=== PATIENT | female | born 1980 | race Caucasian/White ===

== ENCOUNTER 2016-02-28 18:43 | Emergency (ER) | payer OTHER ==
[~2016-02-28] VITALS: Ht 162.6 cm; Wt 112.0 kg
[~2016-02-28 18:43] MED LIST: CEPH500C PO; HYDR-906 PO; IBUP-1542 PO; ONDA4TAB14 PO; TAMS-14 PO
[2016-02-28 18:47] VITALS: Ht 162.6 cm; Wt 112.0 kg
[2016-02-28 20:17] LABS: ADD UMIC YES; URINE BILIRUBIN (Dip) NEGATIVE (NEGATIVE); URINE BLOOD (Dip) 2+ (NEGATIVE); URINE COLOR LT. YELLOW (YELLOW); URINE GLUCOSE (Dip) NEGATIVE (NEGATIVE); URINE KETONES (Dip) 15 (NEGATIVE); URINE LEUKOCYTE ESTERASE (Dip) NEGATIVE (NEGATIVE); URINE NITRITE (Dip) NEGATIVE (NEGATIVE); URINE TOTAL PROTEIN (Dip) NEGATIVE (NEGATIVE); URINE UROBILINOGEN (Dip) 0.2 E.U./dL (0.1-1.0)
[2016-02-28 20:19] LABS: BASOPHIL # 0.3 10^3/ul (0.0-0.1); BASOPHILS % 1.9 % (0.0-2.0); EOSINOPHILS # 0.1 10^3/ul (0.0-0.5); EOSINOPHILS % 0.7 % (0.0-7.0); HEMATOCRIT 37.9 % (37.0-47.0); HEMOGLOBIN 12.8 g/dl (12.0-16.0); LYMPHOCYTES # 2.1 10^3/ul (0.8-2.9); LYMPHOCYTES % 12.7 % (15.0-51.0); MEAN CORPUSCULAR HEMOGLOBIN 27.9 pg (29.0-33.0); MEAN CORPUSCULAR HGB CONC 33.9 g/dl (32.0-37.0); MEAN CORPUSCULAR VOLUME 82.5 fl (82.0-101.0); MEAN PLATELET VOLUME 8.2 fl (7.4-10.4); MONOCYTE # 0.7 10^3/ul (0.3-0.9); MONOCYTES % 4.6 % (0.0-11.0); NEUTROPHIL # 12.9 10^3/ul (1.6-7.5); NEUTROPHILS % 80.1 % (39.0-77.0); PLATELET COUNT 314 10^3/UL (140-440); RED CELL DISTRIBUTION WIDTH 13.6 % (11.5-14.5); UNCORRECTED WBC 16.1 10^3/ul (4.8-10.8); WHITE BLOOD COUNT 16.1 10^3/ul (4.8-10.8)
[2016-02-28 20:25] LABS: CONDITION 1
[2016-02-28 20:26] LABS: ALBUMIN 4.3 g/dl (3.3-4.9)
[2016-02-28 20:27] LABS: POTASSIUM 4.2 mmol/L (3.5-5.1)
[2016-02-28 20:29] LABS: BILIRUBIN,INDIRECT 0.3 mg/dl (0-1.1); BILIRUBIN,TOTAL 0.3 mg/dl (0.2-1.3); CREATININE 0.78 mg/dl (0.44-1.00)
[2016-02-28 20:30] LABS: CALCIUM 9.3 mg/dl (8.4-10.2); TOTAL PROTEIN 8.6 g/dl (6.1-8.1)
[2016-02-28] MEDS ORDERED: ONDANSETRON 4 MG INJ IV STA (20:31)
[2016-02-28] MEDS ORDERED: KETOROLAC 30 MG INJ IV STA (20:31)
--- NOTE | 2016-02-28 20:31 | ERD ---
ER Documentation Chief Complaint Date/Time DATE: 02/28/16 TIME: 20:30 Chief Complaint right flank pain x 2 days HPI 35-year-old female with a history of kidney stones comes in with exacerbated right flank pain for 2 days as well as fever and cough. This patient was seen in December here and was told that she had kidney stones and has an appointment to see a urologist but not until April of this year. Pain is on the right flank , nonradiating, achy, severe associated with nausea. She states that she has noted a slight fever at home associated with cough over the last 4 days. She denies chest pain or shortness of breath. Patient previously was prescribed [place] for pain however she ran out in the same month of her last visit in December last year. ROS All systems reviewed and are negative except as per history of present illness. Medications Home Meds Active Scripts Hydrocodone/Acetaminophen ([place] 5-325 Tablet) 1 Each Tablet, 1 TAB PO Q6H Y for PAIN, #20 TAB Prov:MO ARROYO PA-C 02/28/16 Ibuprofen* (Motrin*) 600 Mg Tab, 600 MG PO Q6, #30 TAB Prov:MO ARROYO PA-C 02/28/16 Tamsulosin Hcl* (Flomax*) 0.4 Mg Cap.er.24h, 0.4 MG PO DAILY, #30 CAP Prov:MO ARRYOO PA-C 02/28/16 Tamsulosin Hcl* (Flomax*) 0.4 Mg Cap.er.24h, 0.4 MG PO BID, #30 CAP Prov:MO ARROYO PA-C 01/19/16 Ibuprofen* (Motrin*) 600 Mg Tab, 600 MG PO Q6, #30 TAB Prov:MO ARROYO PA-C 01/19/16 Cephalexin* (Cephalexin*) 500 Mg Capsule, 500 MG PO Q6, #28 CAP Prov:NED PRESSLEY PA-C 12/03/15 Ondansetron (Ondansetron Odt) 4 Mg Tab.rapdis, 4 MG PO Q6H Y for NAUSEA AND/OR VOMITING, #10 TAB Prov:NED PRESSLEY PA-C 12/03/15 Hydrocodone/Acetaminophen ([place] 5-325 Tablet) 1 Each Tablet, 1-2 EACH PO Q6, # 30 TAB Prov:WENDIENED Tafoya PA-C 12/03/15 Reported Medications [None] No Conflict Check 05/12/09 Allergies Allergies: Coded Allergies: No Known Drug Allergies (Verified Allergy, Mild, 12/03/15) PMhx/Soc Medical and Surgical Hx: pt denies Surgical Hx History of Surgery: No Anesthesia Reaction: No Hx Neurological Disorder: No Hx Respiratory Disorders: No Hx Cardiac Disorders: No Hx Psychiatric Problems: No Hx Miscellaneous Medical Probl: No Hx Alcohol Use: No Hx Substance Use: No Hx Tobacco Use: No Smoking Status: Never smoker Physical Exam Vitals Vital Signs Date Time Temp Pulse Resp B/P Pulse Ox O2 Delivery O2 Flow Rate FiO2 02/28/16 18:47 99.8 74 20 170/89 100 Physical Exam General: Well-developed, well-nourished. The patient appears in no acute distress. HEENT: Head is normocephalic, atraumatic. No scleral icterus. Pupils are equal , round, and reactive. Oral mucous membranes are moist. No pharyngeal erythema. Neck: Supple. Nontender. Lungs: Clear to auscultation. Normal air movement. Heart: Regular rate and rhythm. S1 and S2 are normal. No murmurs, gallops, or rubs. Abdomen: Soft, nontender, nondistended. Bowel sounds are normoactive. Extremities: No clubbing or cyanosis. Normal pulses. Moving extremities x 4. No weakness. Neurologic: Alert and oriented 3. No focal deficits. Skin: Normal turgor. No rash or lesions. Result Diagram: 02/28/16200402/28/162004 Results 24 hrs Laboratory Tests Test 02/28/16 20:05 Alanine Aminotransferase (ALT/SGPT) 32IU/L Albumin 4.3g/dl Albumin/Globulin Ratio 1.00 Alkaline Phosphatase 100IU/L Anion Gap 19 Aspartate Amino Transf (AST/SGOT) 34IU/L Basophils # 0.310^3/ul Basophils % 1.9% Blood Morphology Comment Blood Urea Nitrogen 13mg/dl Calcium Level 9.3mg/dl Carbon Dioxide Level 25mmol/L Chloride Level 101mmol/L Creatinine 0.78mg/dl Direct Bilirubin 0.00mg/dl Eosinophils # 0.110^3/ul Eosinophils % 0.7% Globulin 4.30g/dl Glucose Level 98mg/dl Hematocrit 37.9% Hemoglobin 12.8g/dl Indirect Bilirubin 0.3mg/dl Lipase 25U/L Lymphocytes # 2.110^3/ul Lymphocytes % 12.7% Mean Corpuscular Hemoglobin 27.9pg Mean Corpuscular Hemoglobin Concent 33.9g/dl Mean Corpuscular Volume 82.5fl Mean Platelet Volume 8.2fl Monocytes # 0.710^3/ul Monocytes % 4.6% Neutrophils # 12.910^3/ul Neutrophils % 80.1% Nucleated Red Blood Cells # 0.010^3/ul Nucleated Red Blood Cells % 0.0/100WBC Platelet Count 41114^3/UL Potassium Level 4.2mmol/L Red Blood Count 4.6010^6/ul Red Cell Distribution Width 13.6% Sodium Level 141mmol/L Total Bilirubin 0.3mg/dl Total Protein 8.6g/dl Urine Bacteria FEW Urine Bilirubin NEGATIVE Urine Clarity CLEAR Urine Color LT. YELLOW Urine Glucose NEGATIVE% Urine Hemoglobin 2+ Urine Ketones 15 Urine Leukocyte Esterase NEGATIVE Urine Microscopic RBC 5-10/HPF Urine Microscopic WBC 0-2/HPF Urine Nitrite NEGATIVE Urine Specific [place] 1.020 Urine Squamous Epithelial Cells MODERATE Urine Total Protein NEGATIVE Urine Urobilinogen 0.2 E.U./dL Urine pH 6.5 White Blood Count 16.110^3/ul Current Medications Medications (Trade) Dose Ordered Sig/[place] Route PRN Reason Start Time Stop Time Status Last Admin Dose Admin Ketorolac Tromethamine (Toradol) 30 mg ONCE STAT IV 02/28/16 20:31 02/28/16 20:32 DC 02/28/16 20:50 Ondansetron HCl (Zofran Inj) 4 mg ONCE STAT IV 02/28/16 20:31 02/28/16 20:32 DC 02/28/16 20:50 Morphine Sulfate (morphine) 4 mg ONCE STAT IV 02/28/16 21:18 02/28/16 21:19 DC 02/28/16 21:45 PROCEDURE: CT Abdomen and Pelvis without contrast. CLINICAL INDICATION: Abdominal and pelvic pain. Right flank pain. TECHNIQUE: CT scan of the abdomen and pelvis without contrast was performed. Coronal and sagittal reformatted images were obtained from the axial source images. Images were reviewed on a high-resolution PACS workstation. Total exam DLP is 1409.70 mGy-cm. CTDIvol is 23.72 mGy. One or more of the following dose reduction techniques were used: Automated exposure control, adjustment of the mA and/or kV according to patient size, use of iterative reconstruction technique. COMPARISON: Noncontrast CT scan of the abdomen and pelvis dated 01/19/2016 which demonstrated a 0.5 cm obstructing calculus in the distal right ureter and bilateral Essure devices. FINDINGS: There is mild atelectasis at the left lung base posteriorly. The lung bases are otherwise normal. There is no pleural effusion or pericardial effusion. The heart size is normal. The liver is normal in size and diffusely decreased attenuation consistent with fatty metamorphosis. There is no focal hepatic lesion. The gallbladder and bile ducts are normal. The spleen is normal in size. There is no focal splenic lesion. Both adrenals are normal with no enlargement or mass. The pancreas is unremarkable with no mass or evidence of pancreatitis. There is no renal mass or calculus. There is no left hydronephrosis. There is moderate to severe right hydroureteronephrosis due to an obstructing 0.5 cm calculus in the distal right ureter approximately 1.5 cm cephalad to the ureterovesicle junction. This has moved an additional 3 cm distally when compared with 01/19/2016. However, right hydronephrosis and right perinephric edema is unchanged. The abdominal aorta is not dilated. There is no retroperitoneal lymphadenopathy or mass. There is no pelvic lymphadenopathy or mass. Bilateral Essure devices are once again noted in the fallopian tubes. The bladder and distal ureters are normal. The periappendiceal region is unremarkable with no evidence of appendicitis. The bowel and mesentery are normal. There is no free fluid or free gas. The osseous structures are unremarkable with no fracture or lytic lesion. IMPRESSION: 1. Mild atelectasis at the left lung base posteriorly. 2. Fatty metamorphosis of the liver. 3. Moderate to severe right hydroureteronephrosis due to an obstructing 0.5 cm calculus in the distal right ureter approximately 1.5 cm cephalad to the ureteral vesicle junction. The stone is moved an additional 3 cm distally when compared with 01/19/2016. 4. Bilateral Essure devices of the fallopian tubes. 5. Otherwise unremarkable study. RPTAT: QQ .Ronnie Larry MD, Date Time Electronically viewed and signed by .Ronnie Larry MD, on 02/28/2016 20:34 PROCEDURE: XR Chest. CLINICAL INDICATION: Right flank pain, cough TECHNIQUE: Single AP portable chest. COMPARISON: None FINDINGS: The cardiomediastinal silhouette is within normal limits. The lungs are clear without pleural effusion or focal consolidation. No pneumothorax. The osseous structures and soft tissues are unremarkable. IMPRESSION: No evidence for active cardiopulmonary disease. RPTAT:AAJJ Physician Jaya Date Time Electronically viewed and signed by Parish Johnson Physician on 02/28/2016 20:45 ADOLFO/ Procedures/MDM ED course: Labs and urine were obtained, an IV line was established and patient was given Toradol 30 mg IV. Patient states that her pain is only mildly improved therefore she was given morphine 6 mg IV. MDM: 35 old female comes to the emergency room with a kidney stone that is 2.5 mm on the right side and the UVJ, that appears to be obstructed. Workup included a CBC that was elevated at 15,000, that can be explained due to pain, there is no shift or fever associated or evidence of a urinary tract infection. Chemistry was unremarkable, there is no evidence of any renal injury at this time. No evidence of septic kidney stones. Patient's fever was noted at home was associated with a cough over the last 4 days that is likely a viral upper respiratory infection. A chest x-ray was negative for pneumonia. Patient was advised to follow-up with a neurologist for this. She has no evidence of renal insufficiency, infected kidney stone, and her pain was well controlled in the emergency room. Therefore this patient at this time we feel can safely be managed on an outpatient basis. She is to return for any fevers, worsening pain. Patient's blood pressure was elevated (>120/80) but appears stable without evidence of hypertension emergency or urgency. The patient was counseled about the risks of hypertension and urged to pursue outpatient monitoring and therapy within a week with their primary care physician. Departure Diagnosis: Primary Impression: Kidney stone Additional Impression: Acute URI Condition: Good MO ARROYO PA-C Feb 28, 2016 20:31
--- NOTE | 2016-02-28 20:35 | RADRPT ---
PROCEDURE: CT Abdomen and Pelvis without contrast. CLINICAL INDICATION: Abdominal and pelvic pain. Right flank pain. TECHNIQUE: CT scan of the abdomen and pelvis without contrast was performed. Coronal and sagittal reformatted images were obtained from the axial source images. Images were reviewed on a high-[employer] PACS workstation. Total exam DLP is 1409.70 mGy-cm. CTDIvol is 23.72 mGy. One or more of the following dose reduction techniques were used: Automated exposure control, adjustment of the mA and/ or kV according to patient size, use of iterative reconstruction technique. COMPARISON: Noncontrast CT scan of the abdomen and pelvis dated 01/19/2016 which demonstrated a 0. 5 cm obstructing calculus in the distal right ureter and bilateral Essure devices. FINDINGS: There is mild atelectasis at the left lung base posteriorly. The lung bases are otherwise normal. There is no pleural effusion or pericardial effusion. The heart size is normal. The liver is normal in size and diffusely decreased attenuation consistent with fatty metamorphosis. There is no focal hepatic lesion. The gallbladder and bile ducts are normal. The spleen is normal in size. There is no focal splenic lesion. Both adrenals are normal with no enlargement or mass. The pancreas is unremarkable with no mass or evidence of pancreatitis. There is no renal mass or calculus. There is no left hydronephrosis. There is moderate to severe r ight hydroureteronephrosis due to an obstructing 0.5 cm calculus in the distal right ureter approxim ately 1.5 cm cephalad to the ureterovesicle junction. This has moved an additional 3 cm distally wh en compared with 01/19/2016. However, right hydronephrosis and right perinephric edema is unchanged . The abdominal aorta is not dilated. There is no retroperitoneal lymphadenopathy or mass. There is no pelvic lymphadenopathy or mass. Bilateral Essure devices are once again noted in the fal lopian tubes. The bladder and distal ureters are normal. The periappendiceal region is unremarkable with no evidence of appendicitis. The bowel and mesentery are normal. There is no free fluid or free gas. The osseous structures are unremarkable with no fracture or lytic lesion. IMPRESSION: 1. Mild atelectasis at the left lung base posteriorly. 2. Fatty metamorphosis of the liver. 3. Moderate to severe right hydroureteronephrosis due to an obstructing 0.5 cm calculus in the dist al right ureter approximately 1.5 cm cephalad to the ureteral vesicle junction. The stone is moved an additional 3 cm distally when compared with 01/19/2016. 4. Bilateral Essure devices of the fallopian tubes. 5. Otherwise unremarkable study. RPTAT: QQ .Ronnie Larry MD, MD Date Time Electronically viewed and signed by .Ronnie Larry MD, on 02/28/2016 20:34 .R/
[2016-02-28 20:40] LABS: BACTERIA,URINE FEW
[2016-02-28 20:41] LABS: SQUAMOUS EPITHELIAL CELL,UR MODERATE
--- NOTE | 2016-02-28 20:46 | RADRPT ---
PROCEDURE: XR Chest. CLINICAL INDICATION: Right flank pain, cough TECHNIQUE: Single AP portable chest. COMPARISON: None FINDINGS: The cardiomediastinal silhouette is within normal limits. The lungs are clear without pleural effus ion or focal consolidation. No pneumothorax. The osseous structures and soft tissues are unremarkab le. IMPRESSION: No evidence for active cardiopulmonary disease. RPTAT:AAJJ Parish Johnson Physician Date Time Electronically viewed and signed by Parish Johnson Physician on 02/28/2016 20:45 ADOLFO/
[2016-02-28] MEDS ORDERED: morphine 4 MG/ML VIAL IV STA (21:18)
[2016-02-28] MEDS ORDERED: IBUP-1542 PO (21:57)
[2016-02-28] MEDS ORDERED: HYDR-906 PO (21:57)
[2016-02-28] MEDS ORDERED: TAMS-14 PO (21:57)
[2016-02-28 22:09] VITALS: BP 136/87; PULSE 80; RESP 22; TEMP 98.3
== END 2016-02-28 22:10 | disposition home or self-care (01) ==
LOC: FTE 18:43
DX: N20.0 Calculus of kidney (principal); J06.9 Acute upper respiratory infection, unspecified; R11.0 Nausea; R10.2 Pelvic and perineal pain
CPT/HCPCS: 36415; 71010; 74176; 80053; 81001; 83690; 85025; 96374; 96375; J1885; J2270; J2405; Z7502; 81003